=== PATIENT | male | born 1935 | race Caucasian/White ===

== ENCOUNTER 2024-05-02 11:14 | Inpatient (IN) | payer MEDICARE, OTHER, SELFPAY ==
[2024-05-02] VITALS (11 sets, daily range): BP systolic 101–136; BP diastolic 49–67; BMI 28.4
--- NOTE | 2024-05-02 07:10 | ED.GENMED ---
History of Present Illness
General
Chief Complaint: Cold/Flu/URI Symptoms
Source: patient and ambulance crew
Exam Limitations: dementia
Time Seen by Provider: 05/02/24 07:01
Nursing documentation reviewed up to this point in time: agreed with
Travel History
Have you had any contact with someone who has COVID-19?: No
Do you have any symptoms of coronavirus? Fever > 100 degrees, chills, cough, shortness of breath, sore throat, loss of taste or smell, muscle aches, or headache?: No
History of Present Illness
History of Present Illness:
88-year-old male presents emergency ferment due to shortness of breath, cold-like symptoms and fever since early this morning. He has dementia and is a poor historian.
Past History
Past History
ED Past Medical History: HTN, Hypercholesterolemia, Hypothyroidism and Other (Dementia)
ED Past Surgical History: Tonsilectomy and Urological (Hydrocele)
Social History
Tobacco: Non-smoker
Alcohol: None
Drug: None
Living: assisted
Review of Systems
Review of Systems
Allergies reviewed?: Yes
All Other Systems: Not applicable
Constitutional: Reports fever
Respiratory: Reports cough and trouble breathing
Phy Exam
Physical Exam
Physical Exam:
Physical Exam
General: Fever 103
Neck: supple. no meningeal signs. normal posterior pharynx
Heart: s1/s2 regular rate and rhythm, no murmur. equal radial
pulses.
HEENT: Pupils equal round reactive to light, EOMI
Lungs: no acute respiratory distress. Decreased breath sounds at bases bilaterally, cough
Abdomen: normal bowel sounds. not tender. no CVAT
Neuro: alert, responding to person. no focal neurological deficits cranial nerves II through XII intact
Skin: no rash
Psychiatric: well kept. interactive and cooperative
Extremities: no edema. no calf tenderness. negative homans. good distal pulses
Course
Orders/Labs/Results
Orders:
Orders
05/02/24 07:08
Cardiac Monitoring- Treatment ONCE
IV Insert/Care/Rem.- Treatment PRN
Pulse Ox/cont/shift [RESP] Stat
Quantity: 1
05/02/24 07:09
Electrocardiogram (*1) Stat
Reason for Study: Other
Other Reason for Exam: pneumonia
EKG- Treatment ONCE
CR Chest Portable - 1 View Urgent
Comment:
Reason For Exam: short of breath
Reason Study Needs to be Portable: Unable to Transport
05/02/24 07:24
COVID-19 Antigen Urgent
Source: Nasal Swab
05/02/24 07:25
Complete Blood Count/With Diff Urgent
Comprehensive Metabolic Panel Urgent
NT-proBNP Urgent
Troponin I Urgent
Blood Culture Q30M
ELMIRA Source: Blood/Venous
Specimen Description:
Influenza A+B Rapid Molecular Urgent
ELMIRA Source: Nasal Swab
Specimen Description:
05/02/24 07:36
Lactic Acid Q4H
Comment: CANCEL 2nd LACTIC ACID IF 1st LACTIC ACID IS LESS THAN 2
05/02/24 07:51
Blood Culture Q30M
ELMIRA Source: Blood/Venous
Specimen Description:
05/02/24 08:22
Acetaminophen [Tylenol] 650 mg PO NOW STA
Cefepime HCl [Maxipime] 2,000 mg IV NOW STA
05/02/24 08:28
Vancomycin [Vancocin] 2,000 mg 0.9% Sodium Chloride 500 ml [Nss] 500 ml IV NOW
05/02/24 10:39
0.9% Sodium Chloride 500 ml [Nss] 500 ml IV BOLUS
05/02/24 10:49
Admit/Transfer Patient As Directed
Co-Sign Provider:
Level of Care: Inpatient admission
Assign to:: Telemetry
Physician / Group: Carlton/hospitalist
Diagnosis: CAP
Reason for Telemetry: Arrhythmia
Date to Stop Telemetry: 05/05/24
Time to Stop Telemetry: 11:00
Reason for Hospitalization: CAP
Expected length of stay greater than two midnights?: Yes
ELOS- Estimated Length of Stay in days: 3
I certify the patient meets the requirements for IP care: Yes
05/02/24 10:50
Code Status As Directed
Resuscitation Status: Do not resuscitate
Reached after discussion with pt or family/Healthcare POA: Yes
Decision communicated with: KENZIE at bedside
DNR Bracelet Application ONCE
05/02/24 12:23
0.9% Sodium Chloride 500 ml [Nss] 500 ml IV 60 mls/hr
Magnesium Hydroxide [Milk of Magnesia] 30 ml PO Q96H PRN
VANCOMYCIN Pharmacy to Dose [VANCOCIN Pharmacy to Dose] 1 each Pharmacy To Prepare [Call Pharmacy To Prepare] 0 ml IV PER PROTOCOL
05/02/24 12:23
Echo 2D MMode Color/Doppler Routine
Reason for Study: BL LE swelling
Respiratory Culture/Gram Stain Routine
ELMIRA Source: Sputum
Specimen Description:
Activity As Directed
Activity Level: Out of Bed-Early Mobility
Intake/ Output As Directed
Frequency: Per unit guidelines
Vital Signs As Directed
Frequency: Per unit guidelines
Weight As Directed
Frequency: Once
Comment: on admission
Pt Eval And Treat Routine
Activity Level: As Tolerated
Speech Therapy Eval & Treat Routine
DX Deep Vein Thrombosis Video Routine
05/02/24 12:41
Acetaminophen [Tylenol] 650 mg PO Q4HPRN PRN
05/02/24 13:02
Vancomycin MRSA PCR Screen Routine
ELMIRA Source: N
Specimen Description:
Comment: Changed per pharmacy protocol/Add on request by Merna Jaimes
05/02/24 14:00
Troponin I Q8H
Azithromycin 500 mg/250 ml [Zithromax Infusion] 500 mg in 250 ml IV Q24H
05/02/24 Dinner
NPO
Allow oral meds: Yes
Allow clear liquids: Sips of Clears
05/02/24 16:00
Heparin 5,000 units SC Q8
05/02/24 22:00
Troponin I Q8H
Cefepime HCl [Maxipime] 1,000 mg IV Q12H
05/03/24 06:00
Basic Metabolic Panel IN AM
Complete Blood Count/With Diff IN AM
Troponin I Q8H
Levothyroxine [Synthroid] 125 mcg PO DAILY@0600
05/03/24 08:00
Atenolol [Tenormin] 25 mg PO DAILY
Finasteride [Proscar] 5 mg PO DAILY
05/04/24 06:00
Basic Metabolic Panel IN AM
Complete Blood Count/With Diff IN AM
05/05/24 06:00
Basic Metabolic Panel IN AM
Complete Blood Count/With Diff IN AM
05/05/24 11:00
DC Protocol for Telemetry ONCE
05/06/24 06:00
Basic Metabolic Panel IN AM
Complete Blood Count/With Diff IN AM
05/07/24 06:00
Basic Metabolic Panel IN AM
Complete Blood Count/With Diff IN AM
Abnormal Lab Results
05/02/24
07:25
RBC 4.00 L 10^6/uL
(4.70-6.10)
Hgb 12.8 L g/dL
(13.0-18.0)
Hct 37.8 L %
(39.0-52.0)
MCV 94.5 H fL
(80.0-94.0)
MCH 32.0 H pg
(27.0-31.0)
MPV 10.6 H fL
(7.4-10.4)
Absolute Neuts (auto) 7.5 H 10^3/uL
(1.4-6.5)
Absolute Lymphs (auto) 0.7 L 10^3/uL
(1.2-3.4)
Absolute Monos (auto) 0.9 H 10^3/uL
(0.1-0.6)
Neutrophils % 81.7 H %
(42.2-75.2)
Lymphocytes % 7.4 L %
(20.5-51.1)
Monocytes % 10.2 H %
(1.7-9.3)
BUN 32 H mg/dl
(9-20)
Creatinine 1.9 H mg/dL
(0.7-1.3)
Glucose 136 H mg/dl
(70-99)
Troponin I 0.045 H* ng/ml
Total Protein 6.1 L g/dl
(6.3-8.2)
Albumin 3.3 L g/dl
(3.5-5.0)
05/02/24 07:25
05/02/24 07:25
Vital Signs
Initial and Last Documented VS:
Initial Vital Signs
Temp
103 F H
05/02/24 06:58
Last Documented Vital Signs
Temp Pulse Resp BP Pulse Ox
98.0 F 63 18 136/64 96
05/02/24 12:53 05/02/24 12:53 05/02/24 12:53 05/02/24 12:53 05/02/24 12:53
MDM/Problems Addressed
Differential Diagnosis Includes:
Pneumonia, influenza, COVID
MDM/Problems Addressed:
88-year-old male with pneumonia, hypoxia, fever. IV cefepime and vancomycin given.
Chronic conditions affecting care: HTN
Acute Exacerbation and/or Progression of Chronic Illness: HTN
*Radiology
Radiology exam reviewed: radiology read reviewed (Chest x-ray shows possible pneumonia)
*Pulse Oximetry
Patient hypoxic: yes
*EKG
Interpreted by ED Provider?: Yes
EKG Intrepretation Date: 05/02/24
EKG Intrepretation Time: 07:26
Interpretation: normal
Comparison EKG: no comparison EKG present
Heart Rate: 69
Rate: normal
Rhythm: sinus
[place]: normal axis
Interval: normal interval
QRS Pattern: normal QRS
Ischemia: no ischemia
*Title Camera Operator Interpretation
Rate: normal
Interpretation: normal
Heart Rate: 70
Rhythm: sinus
*Critical Care Note
Total Time (30-74mins, 75-104mins- exclusive of procedures): Not Applicable
Patient Management
Social determinants of health affecting care: Living situation
Discussion with other providers: Hospitalist
Escalation/DeEscalation of care consider admission/obs:
admit indicated
ED Attending Note
-
Portions of this chart may have been created with voice recognition software.� Occasional wrong word or��sound alike� substitutions may have occurred due to the inherent limitations of voice recognition software.
Discharge Plan
Departure
Patient Disposition: Admit
Date of Disposition: 05/02/24
Time of Disposition: 08:25
Admit to: Telemetry
Presentation/result/management discussed w/ accepting MD/DO: Hospitalist
Patient with high blood pressure during this ER visit?: No
Condition: Fair
Discharge Problem:
Pneumonia
Interventions
Interventions:
*Risk Screen - Suicide Last Done: 05/02/24 12:22
*General Assessment Last Done: 05/02/24 08:00
*Neglect/Abuse Screening Last Done: 05/02/24 07:43
ED- Fall Risk Assessment Last Done: 05/02/24 07:43
*ED COVID-19 Vaccine History Last Done: 05/02/24 07:43
*Nursing Disposition Last Done: 05/02/24 12:22
ED- Pulmonary Assessment Last Done: 05/02/24 07:43
Discharge Date and Time
Discharge Date/Time: 05/02/24 12:24
[2024-05-02 07:49] LABS: % Basophils 0.2 % (0-2); % Eosinophils 0.1 % (0-6); % Immature Granulocytes 0.4 % (0-0.5); % Lymphocytes 7.4 % (20.5-51.1); % Monocytes 10.2 % (1.7-9.3); % Neutrophils 81.7 % (42.2-75.2); Absolute Lymphocytes 0.7 10^3/uL (1.2-3.4); Absolute Monocytes 0.9 10^3/uL (0.1-0.6); Absolute Neutrophils 7.5 10^3/uL (1.4-6.5); Hematocrit 37.8 % (39.0-52.0); Hemoglobin 12.8 g/dL (13.0-18.0); Mean Corp Hgb Conc. 33.9 g/dL (33.0-37.0); Mean Corpuscular Volume 94.5 fL (80.0-94.0); Mean Platelet Volume 10.6 fL (7.4-10.4); Nucleated Red Blood Cells % 0 % (-); Platelet Count 172 10^3/uL (130-400); Red Cell Dist. Width 12.9 % (11.5-14.5); White Blood Cell Count 9.2 10^3/uL (4.8-10.8)
[2024-05-02 08:02] LABS: ALT (SGPT) 24 U/L (0-50); AST (SGOT) 32 U/L (17-59); Albumin 3.3 g/dl (3.5-5.0); Alkaline Phosphatase 53 U/L (38-126); Blood Urea Nitrogen 32 mg/dl (9-20); Calcium 9.4 mg/dl (8.4-10.2); Carbon Dioxide 25 mmol/L (22-30); Chloride 107 mmol/L (98-107); Glucose 136 mg/dl (70-99); Potassium 4.4 mmol/L (3.5-5.1); Sodium 140 mmol/L (135-145); Total Bilirubin 1.2 mg/dl (0.2-1.3); Total Protein 6.1 g/dl (6.3-8.2); eGFR 33.51
[2024-05-02 08:03] LABS: Lactic Acid 1.5 mmol/L (0.7-2.0)
[2024-05-02 08:22] LABS: COVID-19 Antigen Negative (Negative)
[2024-05-02 08:23] LABS: NT-proBNP 1760 pg/ml; Troponin I 0.045 ng/ml
[2024-05-02] MEDS: MAXIPIME 2000 MG IV (08:48)
[2024-05-02] MEDS: TYLENOL 650 MG PO (08:49)
[2024-05-02] MEDS: VANCOCIN 540 MG IV (08:53)
--- NOTE | 2024-05-02 10:33 | HPS.HSE ---
Family Physician
-
Family Physician: Donn Canas, DO
Chief Complaint
-
SOB, fever
History of Present Illness
HPI: 88-year-old male PMH dementia, hypertension, hyperlipidemia, BPH, hypothyroidism, CAD, right ear deafness, CKD; p/w shortness of breath and fever that started in the morning of admission.
He is a poor historian due to dementia.
He is arousable but not orientated; this is his baseline mental status per KENZIE at bedside.
Medical History
Past Medical History
Past Medical History: Reports Other (HTN, HLD, BPH, dementia, hypothyroidism, CAD/SD 23 years ago, deaf right ear)
Past Surgical History: Reports Other (TURP)
Social History
Tobacco: Non-smoker
Alcohol: None
Personal:
Family History
Family History: Unable to Obtain (Due to dementia)
Allergies / Home Medications
Allergies reflects when Allergies were last updated in real trends.
Home Medications with original date entered in real trends
Allergy/Medication List:
Allergies
Allergy/AdvReac Type Severity Reaction Status Date / Time
No Known Allergies Allergy Verified 05/02/24 06:59
Home Medications
atenolol 25 mg tablet 25 mg PO DAILY Blood pressure #30 tabs 12/02/23
cholecalciferol (vitamin D3) 25 mcg (1,000 unit) tablet 1,000 unit PO HS Supplement #30 tabs 12/02/23
finasteride 5 mg tablet 5 mg PO DAILY Urinary issue #30 tabs 12/02/23
acetaminophen 325 mg capsule 650 mg PO Q4HPRN PRN fever or mild pain 05/02/24
levothyroxine 125 mcg tablet 125 mcg PO DAILY Thyroid 05/02/24
magnesium hydroxide 400 mg/5 mL oral suspension (Milk of Magnesia) 30 ml PO Q96H PRN day 4 no bm 05/02/24
Review of Systems
-
Respiratory: Reports See HPI
Physical Exam
Vital Signs
Vital Signs
Temp Pulse Resp BP Pulse Ox
39.4 C H 63 24 120/60 92
05/02/24 06:58 05/02/24 09:45 05/02/24 09:45 05/02/24 09:00 05/02/24 09:45
Physical Exam
General: Well Developed, Well Nourished, Comfortable, Respiratory Distress (mild) and Appears Chronically Ill
HEENT: NormoCephalic, Moist mucous membranes, Atraumatic and Oxygen (2L NC)
Respiratory: Clear and Non Labored Respirations; No Accessory Resp Muscle Use
Cardiac: S1/S2 and Regular Rhythm; No Murmur or Rub
GI: Soft, Non Tender, Non Distended and Normal Bowel Sounds; No Organomegaly
Rectal: Deferred by Provider
Musculoskeletal: No Clubbing, No Cyanosis and No Edema
Skin: No Rash
Neuro: Awake; No Oriented
Psych: Calm and Apparent Dementia
Laboratory Results
-
05/02/24 07:25
05/02/24 07:25
Laboratory Results
Lactic Acid 1.5 mmol/L (0.7-2.0) 05/02/24 07:36
Total Bilirubin 1.2 mg/dl (0.2-1.3) 05/02/24 07:25
AST 32 U/L (17-59) 05/02/24 07:25
ALT 24 U/L (0-50) 05/02/24 07:25
Alkaline Phosphatase 53 U/L (38-126) 05/02/24 07:25
Troponin I 0.045 ng/ml H* 05/02/24 07:25
Data Reviewed
-
Diagnostic Radiology: Image Personally Visualized and interpreted and Report Reviewed by me
Lab Data: Labs Reviewed by me
Impression/Plan
-
HPI: 88-year-old male PMH dementia, hypertension, hyperlipidemia, BPH, hypothyroidism, CAD, right ear deafness, CKD; p/w shortness of breath and fever that started in the morning of admission.
He is a poor historian due to dementia.
He is arousable but not orientated; this is his baseline mental status per KENZIE at bedside.
CXR:
mild increased stranding in the left lung base, with obscuration of the left hemidiaphragm. Minimal blunting of the left costophrenic angle.
A/P:
# Sepsis POA due to CAP
# Acute hypoxic respiratory insufficiency
Pt placed on 2L NC, cont O2 and wean as tolerated, he is not on home O2
CXR noted left lung stranding
COVID/Flu neg
Follow blood Cx, check MRSA screen
cont cefepime/Vanc , add azithromycin
# STACEY on CKD3a
Scr 1.9 from baseline creatinine 1.4.
gentle IVF 500 cc only due to pedal edema
# Non-ischemic myocardial injury
troponin 0.045, cont to trend
# pedal edema
check Echo
consider diuretic
# Hypothyroidism
cont Levoxyl
# Chronic cognitive impairment
arousable but not orientated
SPL eval prior to starting diet
# Essential HTN
Cont [employer] atenolol with holding parameter
# HLD
# CAD
# BPH
# h/o TURP
cont Flomax
DNR
DVT ppx: heparin SQ
[2024-05-02] MEDS: NSS 500 IV ×2 (11:03→16:03)
--- NOTE | 2024-05-02 12:49 | PHA.VAN.IN ---
Assessment
- Assessment
Renal Function: Appears elevated from baseline (SCR 1.9 vs ~1.4)
Concomitant Antimicrobials: cefepime, azithromycin
Plan
- Plan
Initial / Loading Dose: 2000mg - 05/02 08:53
Maintenance Regimen: dosing by level
Monitoring: random 05/03 0600
MRSA Screen: Ordered per protocol
Pharmacokinetics Vancomycin I
- -
Patient Age: 88
Patient Sex: Male
Vancomycin Day #: 1
Indication: Pulmonary/Respiratory
Requesting Provider: Dr. Vincent
Pertinent Antimicrobial Allergies:
NKDA
Height / Weight:
Height 5 ft 10 in
Actual Weight 91.3 kg
Pertinent Past Medical History: CKD (baseline SCR ~1.4)
- Vital Signs / Lab Results
Temp Pulse Resp BP Pulse Ox
97.5 F 64 22 112/56 96
05/02/24 12:21 05/02/24 12:15 05/02/24 12:15 05/02/24 12:00 05/02/24 11:45
Lab Results - Hematology
05/02/24
07:25
WBC 9.2
Lab Results - Chemistry
05/02/24
07:25
BUN 32 H
Creatinine 1.9 H
Albumin 3.3 L
05/02/24 05/02/24
07:36 11:15
Lactic Acid 1.5 Cancelled
Microbiology Results
05/02/24 07:25 Influenza Types A & B (CARLOS) - Final
Nasal Swab Negative for Influenza A & B, NAAT
Negative results must be combined with clinical observations
and patient history.
Nucleic Acid Amplification test (NAAT)performed on the
[employer] platform.
--- NOTE | 2024-05-02 13:20 | PTOTSP ---
Dysphagia Evaluation
Patient presents with signs concerning for oral/pharyngeal dysphagia without signs of aspiration but silent aspiration cannot be ruled out at the bedside. Patient had episodes concerning for significantly delayed to absent swallows, with swallow
eventually initiated with an additional bolus.
Patient is at acute on chronic risk for dysphagia given his dementia and current acute illness with PNA. If family opting for a PO diet understanding risks/complications of aspiration given patient's history of dementia, consider IDDSI Level 4
Puree, IDDSI Level 0 Thin Liquids with full supervision, assistance, and alternating bites with sips of liquid.
Alternative option includes NPO given given concern for episodic significantly delayed to absent swallows. Per physician, continue the latter given acute confusion.
Recommend:
1. On-going goals of care discussions regarding nutrition/hydration in patient with dementia and current PNA
2. Will re-evaluate swallowing as able/appropriate. Consider objective assessment of swallowing via video swallow to rule out silent aspiration.
3. Medications - non-oral
4. Oral care 3x daily
--- NOTE | 2024-05-02 13:38 | PTOTSP ---
Dysphagia Evaluation
Patient with signs concerning for oral/pharyngeal dysphagia without signs of aspiration but silent aspiration cannot be ruled out at the bedside. Episodes concerning for significantly delayed to absent swallows noted, with swallow eventually
initiated with an additional bolus.
Patient is at acute on chronic risk for dysphagia given his dementia and current acute illness with PNA. If family opting for a PO diet understanding risks/complications of aspiration given patient's history of dementia, consider IDDSI Level 4
Puree, IDDSI Level 0 Thin Liquids with full supervision, assistance, and alternating bites with sips of liquid.
Alternative option includes NPO given concern for episodic significantly delayed to absent swallows. Per physician, continue NPO given acute confusion.
Recommend:
1. On-going goals of care discussions regarding nutrition/hydration in patient with dementia and current PNA
2. Will re-evaluate swallowing as able/appropriate. Consider objective assessment of swallowing via video swallow to rule out silent aspiration.
3. Medications - non-oral
4. Oral care 3x daily
--- NOTE | 2024-05-02 14:00 | PTCARENOTE ---
Patient received from ED in stretcher, pulled over, 2LNC, in NAD, drowsy. MRSA screen collected, patient positive, transferred to 2N after returning from ECHO. Receiving RN given report, no questions indicated.
[2024-05-02 15:58] LABS: Troponin I 0.029 ng/ml
[2024-05-02] MEDS: ZITHROMAX INFUSION 250 IV (16:04)
[2024-05-02] MEDS: HEPARIN 5000 UNITS SC ×2 (16:05→23:13)
[2024-05-02] MEDS: MAXIPIME 1000 MG IV (22:08)
[2024-05-02] MEDS: STERILE WATER FOR INJECTION 10 ML IV (22:09)
[2024-05-02 22:31] LABS: Troponin I 0.026 ng/ml
[2024-05-03] VITALS (7 sets, daily range): BP systolic 124–154; BP diastolic 57–78; PULSE 72; O2SAT 95
[2024-05-03] MEDS: SYNTHROID PO (05:56)
[2024-05-03 07:40] LABS: % Basophils 0.3 % (0-2); % Eosinophils 0.6 % (0-6); % Immature Granulocytes 0.4 % (0-0.5); % Lymphocytes 15.1 % (20.5-51.1); % Monocytes 9.7 % (1.7-9.3); % Neutrophils 73.9 % (42.2-75.2); Absolute Lymphocytes 1.1 10^3/uL (1.2-3.4); Absolute Monocytes 0.7 10^3/uL (0.1-0.6); Absolute Neutrophils 5.2 10^3/uL (1.4-6.5); Hematocrit 36.4 % (39.0-52.0); Hemoglobin 12.2 g/dL (13.0-18.0); Mean Corp Hgb Conc. 33.5 g/dL (33.0-37.0); Mean Corpuscular Hgb 31.4 pg (27.0-31.0); Mean Corpuscular Volume 93.6 fL (80.0-94.0); Mean Platelet Volume 11.5 fL (7.4-10.4); Nucleated Red Blood Cells % 0 % (-); Platelet Count 166 10^3/uL (130-400); Red Blood Cell Count 3.89 10^6/uL (4.70-6.10); Red Cell Dist. Width 13.1 % (11.5-14.5)
[2024-05-03] MEDS: HEPARIN 5000 UNITS SC ×3 (07:57→23:03)
[2024-05-03] MEDS: TENORMIN PO (07:58)
[2024-05-03] MEDS: PROSCAR PO (07:58)
[2024-05-03 08:02] LABS: Troponin I 0.023 ng/ml
[2024-05-03 08:11] LABS: Blood Urea Nitrogen 38 mg/dl (9-20); Carbon Dioxide 25 mmol/L (22-30); Chloride 109 mmol/L (98-107); Estimated Creatinine Clearance 35 ml/min; Glucose 95 mg/dl (70-99); Potassium 4.5 mmol/L (3.5-5.1); Sodium 143 mmol/L (135-145); Vancomycin Random 11.3 ug/ml
--- NOTE | 2024-05-03 09:22 | PHA.VAN.FU ---
Vancomycin Assessment / Plan
- Assessment
Renal Function: SCR Decreasing
WBC's are: WNL
In the past 24 hrs, patient has been: Afebrile
Concomitant Antimicrobials: cefepime, azithromycin
- Assessment - Therapeutic Drug Monitoring
Random Level: 11.3 - drawn ~21H after 2g loading dose
- Dosing Plan
Dosing by Level: Re-dose today (Vanc 1000mg)
- Monitoring Plan
Random Level: 05/04 0600
- Follow Up
Pharmacy will continue to follow.
Vancomycin Follow UP
- -
Patient Age: 88
Patient Sex: Male
Vancomycin Day #: 2
Indication: Pulmonary/Respiratory
Requesting Provider: Dr. Vincent
Pertinent Antimicrobial Allergies:
NKDA
Height / Weight:
Height 5 ft 10 in
Actual Weight 89.925 kg
Pertinent Past Medical History: CKD (baseline SCR ~1.4)
- Vital Signs / Lab Results
Temp Pulse Resp BP Pulse Ox
97.5 F 58 14 124/57 95
05/03/24 07:25 05/03/24 07:25 05/03/24 07:25 05/03/24 07:25 05/03/24 07:25
Lab Results - Hematology
05/02/24 05/03/24
07:25 06:02
WBC 9.2 7.0
Lab Results - Chemistry
05/02/24 05/03/24
07:25 06:02
BUN 32 H 38 H
Creatinine 1.9 H 1.5 H
Estimated Creat Clear 35
Albumin 3.3 L
05/02/24 05/02/24
07:36 11:15
Lactic Acid 1.5 Cancelled
Microbiology Results
05/02/24 07:51 Blood Culture - Preliminary
Blood/Venous No Growth in 24 hours- Final report to follow
05/02/24 07:25 Blood Culture - Preliminary
Blood/Venous No Growth in 24 hours- Final report to follow
05/02/24 13:02 Nasal Screen MRSA (PCR) - Final
Nose Staph aureus MRSA
05/02/24 07:25 Influenza Types A & B (CARLOS) - Final
Nasal Swab Negative for Influenza A & B, NAAT
Negative results must be combined with clinical observations
and patient history.
Nucleic Acid Amplification test (NAAT)performed on the
[employer] platform.
Therapeutic Drug Monitoring
Random Vancomycin 11.3 ug/ml 05/03/24 06:02
[2024-05-03] MEDS: MAXIPIME 1000 MG IV ×2 (10:10→22:23)
[2024-05-03] MEDS: STERILE WATER FOR INJECTION 10 ML IV ×2 (10:11→22:23)
--- NOTE | 2024-05-03 10:18 | PTOTSP ---
Dysphagia Therapy
Patient alertness improved and is appropriate to initiate an oral diet as outlined below. Consider video swallow study to r/o silent aspiration given admission with PNA, history of dementia, and unknown baseline.
Recommend:
1. Regular, Thin Liquids
2. Medications in puree
3. Strategies: full supervision, assist as needed, upright to 90 degrees, small single sips/bites, slow rate
4. Oral care 3x daily
5. Consider video swallow study
--- NOTE | 2024-05-03 11:23 | W.PN.HOSP.TC ---
Today's Communication/Plan
-
see A/P
Assessment / Plan
Assessment / Plan
HPI: 88-year-old male PMH dementia, hypertension, hyperlipidemia, BPH, hypothyroidism, CAD, right ear deafness, CKD; p/w shortness of breath and fever that started in the morning of admission.
He is a poor historian due to dementia.
He is arousable but not orientated; this is his baseline mental status per KENZIE at bedside.
CXR:
mild increased stranding in the left lung base, with obscuration of the left hemidiaphragm. Minimal blunting of the left costophrenic angle.
A/P:
# Sepsis POA due to CAP vs aspiration pneumonia
# Acute hypoxic respiratory insufficiency
Pt placed on 2L NC, cont O2 and wean as tolerated, he is not on home O2
CXR noted left lung stranding
COVID/Flu neg, blood Cx negative
MRSA screen positive
cont cefepime, Vanc, azithromycin, add Flagyl for anaerobic coverage for possible aspiration
# Dysphagia
# Dementia
Pt is awake but not orientated
check VSE
SPL following for swallowing eval
# STACEY on CKD3a
Scr 1.9 -> 1.5 after 500 cc IVF; baseline creatinine 1.4.
# Non-ischemic myocardial injury
# Chronic LE edema
check Echo
consider diuretic , daughter states that pt has never been on diuretic
Cont [employer] MAGISTRATE Compression stocking (daughter to bring in)
# Hypothyroidism
cont Levoxyl
# Essential HTN
Cont [employer] MAGISTRATE atenolol with holding parameter
# HLD
# CAD
# BPH
# h/o TURP
cont Flomax
DNR
DVT ppx: heparin SQ
DW daughter at bedside
Anticipated Discharge: > 48 hours
Subjective/Interval History
-
Date of Service: May 03, 2024
Objective Data
-
Labs:
Laboratory Results
05/03/24
06:02
WBC 7.0
Hgb 12.2 L
Hct 36.4 L
Plt Count 166
Sodium 143
Potassium 4.5
Chloride 109 H
Carbon Dioxide 25
BUN 38 H
Creatinine 1.5 H
Glucose 95
Calcium 9.0
Vital Signs:
Vital Signs
Temp Pulse Resp BP Pulse Ox
36.4 C 58 14 124/57 95
05/03/24 07:25 05/03/24 07:25 05/03/24 07:25 05/03/24 07:25 05/03/24 07:25
I&O
05/02/24 05/03/24 05/04/24
06:59 06:59 06:59
Intake Total 1540 / 1790 250 / 250
Balance 1540 / 1790 250 / 250
Review of Systems
-
Unable to obtain full review of systems at this time due to: Dementia
Respiratory: Reports Cough
Physical Exam
-
General: Well Developed, Well Nourished, Comfortable and Respiratory Distress (mild)
HEENT: Normocephalic, Atraumatic, Hearing Impaired and Oxygen (2L NC)
Respiratory: Clear to Auscultation, Non Labored Respirations and Other (harsh breath sound); Negative Accessory Resp Muscle Use
Cardiac: Regular Rhythm and S1/S2; Negative Murmur
GI: Soft, Nontender and Normal Bowel Sounds
Musculoskeletal: Edema, Right Lower Extrem and Edema, Left Lower Extrem
Neuro: Awake
Psych: Calm and Apparent Dementia
Data Reviewed
-
Diagnostic Radiology: Image personally visualized and interpreted and Report Reviewed by me
Labs: Labs Reviewed by me
--- NOTE | 2024-05-03 13:15 | PTOTSP ---
Video Swallow Study
Summary: Patient presents with mild oral/pharyngeal dysphagia and suspected esophageal dysphagia (i.e., retention in esophagus after solids reduced with thin liquid barium wash, but retrograde flow of those liquids below pharyngoesophageal
segment). No top down or bottom up aspiration occurred.
Recommend:
1. Regular, Thin
2. Medications in puree
3. Strategies: full supervision, assist as needed, upright to 90 degrees, small single sips/bites, slow rate, alternate sips/bites (to assist with pharyngoesophageal clearance), upright for 30 minutes after PO intake as a reflux precaution
4. Oral care 3x daily
5. No further dysphagia therapy with an PHYSICAL MEDICINE SPECIALIST warranted. Please reconsult as needed.
6. Consider GI consult to assess esophageal stage of swallowing pending patient/family GOC.
[2024-05-03] MEDS: VANCOCIN 200 IV (13:30)
[2024-05-03] MEDS: FLAGYL 500 MG 100 IV ×2 (14:40→22:23)
[2024-05-03] MEDS: ZITHROMAX INFUSION 250 IV (15:49)
--- NOTE | 2024-05-03 17:02 | CM ---
Patient is a resident of [facility]. Hx dementia. Poor historian. Assist of 2 to transfer. Called and spoke with who did not recall how long patient has been at [facility]. IMM reviewed with . Discharge Plan of Care: Return
to [facility].
[2024-05-04 03:19] VITALS: BP 159/91
[2024-05-04] MEDS: SYNTHROID 125 MCG PO (05:16)
[2024-05-04] MEDS: FLAGYL 500 MG 100 IV ×3 (05:16→21:57)
--- NOTE | 2024-05-04 07:38 | PN.CDI ---
CDI
- -
CDI:
Physician Documentation Request
Admit Date: 05/02/24 11:14
Dear Doctor Carlton
Please review the following and provide your response in the progress notes.
Clinical Indicators:
EMS, 05/02
#'...87% on RA...'
#'...placed on 4L via NC to which he increased to 90%.'
#'During transport to ED....oxygen increased from 4L to 6L ...pulse ox improved to 96%
H+P, 05/02
#General: Well Developed, Well Nourished, Comfortable, Respiratory Distress (mild) and Appears Chronically Ill
# Sepsis POA due to CAP
# Acute hypoxic respiratory insufficiency
#Pt placed on 2L NC, cont O2 and wean as tolerated, he is not on home O2
Please clarify which of the following accurately represents the patient's respiratory status:
Acute respiratory failure, POA, resolved
Acute hypoxic respiratory insufficiency
Other(please specify)
Additional information for Respiratory Failure:
Recognized criteria for Respiratory Failure (Source: [facility] Sep 2013)
Symptoms Please indicate type if known
1. Tachypnea, SOB, dyspnea Hypoxic
2. Use of accessory muscles Hypercapnic
3. Pallor or cyanosis Hypoxic and Hypercapnic
4. Anxiety or restlessness
5. Unable to speak in full sentences
Supplemental O2 of > 40% (5LPM) Intubation is not required
Use of terms such as suspected, likely, concern for, or probable (associated with a specific diagnosis that is being evaluated, monitored, or treated as if it exists) are acceptable and can be coded in the inpatient setting, when documented at the
time of discharge.
Thank you,
Elyssa Aguilera RN BSN CCDS
CDI Specialist
please contact via tiger text
Please use your independent medical judgment in providing your response.
[2024-05-04 07:48] LABS: % Basophils 0.4 % (0-2); % Eosinophils 2.1 % (0-6); % Immature Granulocytes 0.5 % (0-0.5); % Lymphocytes 17.9 % (20.5-51.1); % Monocytes 10.9 % (1.7-9.3); % Neutrophils 68.2 % (42.2-75.2); Absolute Eosinophils 0.1 10^3/uL (0-0.7); Absolute Monocytes 0.6 10^3/uL (0.1-0.6); Absolute Neutrophils 3.9 10^3/uL (1.4-6.5); Hematocrit 34.1 % (39.0-52.0); Hemoglobin 11.5 g/dL (13.0-18.0); Mean Corp Hgb Conc. 33.7 g/dL (33.0-37.0); Mean Corpuscular Hgb 31.4 pg (27.0-31.0); Mean Corpuscular Volume 93.2 fL (80.0-94.0); Nucleated Red Blood Cells % 0 % (-); Platelet Count 179 10^3/uL (130-400); Red Blood Cell Count 3.66 10^6/uL (4.70-6.10); Red Cell Dist. Width 12.8 % (11.5-14.5); White Blood Cell Count 5.7 10^3/uL (4.8-10.8)
[2024-05-04 08:10] LABS: Vancomycin Random 11.9 ug/ml
[2024-05-04 08:28] LABS: Blood Urea Nitrogen 35 mg/dl (9-20); Carbon Dioxide 24 mmol/L (22-30); Chloride 108 mmol/L (98-107); Estimated Creatinine Clearance 38 ml/min; Glucose 100 mg/dl (70-99); Sodium 139 mmol/L (135-145); eGFR 48.34
--- NOTE | 2024-05-04 09:44 | PHA.VAN.FU ---
Vancomycin Assessment / Plan
- Assessment
Renal Function: Stable
WBC's are: WNL
In the past 24 hrs, patient has been: Afebrile
Concomitant Antimicrobials: cefepime, azithromycin, metronidazole
- Assessment - Therapeutic Drug Monitoring
Random Level: 11.9 - drawn ~17.5H after previous dose of 1000mg
- Dosing Plan
Adjust Regimen to: Vanc 1000mg Q24H - first dose now then 0600
New Regimen Predicts: AUC (450), Peak (27.5), Trough (12)
- Monitoring Plan
No level(s) ordered at this time: consider levels in next few days
- Follow Up
Pharmacy will continue to follow.
Vancomycin Follow UP
- -
Patient Age: 88
Patient Sex: Male
Vancomycin Day #: 3
Indication: Pulmonary/Respiratory
Requesting Provider: Dr. Vincent
Pertinent Antimicrobial Allergies:
NKDA
Height / Weight:
Height 5 ft 10 in
Actual Weight 89.925 kg
Pertinent Past Medical History: CKD (baseline SCR ~1.4)
- Vital Signs / Lab Results
Temp Pulse Resp BP Pulse Ox
98.6 F 64 16 159/91 95
05/04/24 07:15 05/04/24 07:15 05/04/24 07:15 05/04/24 03:19 05/04/24 07:15
Lab Results - Hematology
05/02/24 05/03/24 05/04/24
07:25 06:02 07:01
WBC 9.2 7.0 5.7
Lab Results - Chemistry
05/02/24 05/03/24 05/04/24
07:25 06:02 07:00
BUN 32 H 38 H 35 H
Creatinine 1.9 H 1.5 H 1.4 H
Estimated Creat Clear 35 38
Albumin 3.3 L
05/02/24 05/02/24
07:36 11:15
Lactic Acid 1.5 Cancelled
Microbiology Results
05/02/24 07:51 Blood Culture - Preliminary
Blood/Venous No Growth in 48 hours- Final report to follow
05/02/24 07:25 Blood Culture - Preliminary
Blood/Venous No Growth in 48 hours- Final report to follow
05/02/24 13:02 Nasal Screen MRSA (PCR) - Final
Nose Staph aureus MRSA
05/02/24 07:25 Influenza Types A & B (CARLOS) - Final
Nasal Swab Negative for Influenza A & B, NAAT
Negative results must be combined with clinical observations
and patient history.
Nucleic Acid Amplification test (NAAT)performed on the
[employer] platform.
Therapeutic Drug Monitoring
Random Vancomycin 11.9 ug/ml 05/04/24 07:00
[2024-05-04] MEDS: TENORMIN 25 MG PO (09:59)
[2024-05-04] MEDS: HEPARIN 5000 UNITS SC ×3 (09:59→23:08)
[2024-05-04] MEDS: PROSCAR 5 MG PO (09:59)
[2024-05-04] MEDS: MAXIPIME 1000 MG IV ×2 (10:04→21:58)
[2024-05-04] MEDS: STERILE WATER FOR INJECTION 10 ML IV ×2 (10:21→21:58)
[2024-05-04] MEDS: VANCOCIN 200 IV (10:22)
--- NOTE | 2024-05-04 11:35 | W.PN.HOSP.TC ---
Addendum entered and electronically signed by Ashley Vincent MD 05/04/24 14:01:
# Acute respiratory failure POA
Original Note:
Today's Communication/Plan
-
see A/P
Assessment / Plan
Assessment / Plan
HPI: 88-year-old male PMH dementia, hypertension, hyperlipidemia, BPH, hypothyroidism, CAD, right ear deafness, CKD; p/w shortness of breath and fever that started in the morning of admission.
He is a poor historian due to dementia.
He is arousable but not orientated; this is his baseline mental status per KENZIE at bedside.
CXR:
mild increased stranding in the left lung base, with obscuration of the left hemidiaphragm. Minimal blunting of the left costophrenic angle.
A/P:
# Sepsis POA due to CAP
# Acute hypoxic respiratory insufficiency
Pt placed on 2L NC, cont O2 and wean as tolerated, he is not on home O2
CXR noted left lung stranding
COVID/Flu neg, blood Cx negative
MRSA screen positive
cont cefepime, Vanc, azithromycin, and added Flagyl for anaerobic coverage for possible aspiration
# Dementia
# Dysphagia ruled out with VSE
Pt is awake but not orientated
OK for solid and thin liquid per SPL
# STACEY on CKD3a
Scr 1.9 -> 1.4; baseline creatinine at 1.4.
# Non-ischemic myocardial injury
# Chronic LE edema
Echo: Normal biventricular size and systolic function. Stage I diastolic dysfunction. No significant change since the prior study of 10/25/2019.
daughter states that pt has never been on diuretic
will give IV lasix 40 mg x1
monitor SCr
Cont ASSOCIATE MEDIA DIRECTOR Compression stocking (daughter to bring in)
# Hypothyroidism
cont Levoxyl
# Essential HTN
Cont ASSOCIATE MEDIA DIRECTOR atenolol with holding parameter
# HLD
# CAD
# BPH
# h/o TURP
cont Flomax
DNR
DVT ppx: heparin SQ
DW RN
Anticipated Discharge: 24 - 48 hours
Subjective/Interval History
-
Date of Service: May 04, 2024
Objective Data
-
Labs:
Laboratory Results
05/04/24 05/04/24
07:00 07:01
WBC 5.7
Hgb 11.5 L
Hct 34.1 L
Plt Count 179
Sodium 139
Potassium 4.0
Chloride 108 H
Carbon Dioxide 24
BUN 35 H
Creatinine 1.4 H
Glucose 100 H
Calcium 9.0
Vital Signs:
Vital Signs
Temp Pulse Resp BP Pulse Ox
37.0 C 74 16 159/91 95
05/04/24 07:15 05/04/24 09:59 05/04/24 07:15 05/04/24 09:59 05/04/24 07:15
I&O
05/03/24 05/04/24 05/05/24
06:59 06:59 06:59
Intake Total 1540 / 1790 1330 / 1330
Balance 1540 / 1790 1330 / 1330
Review of Systems
-
Unable to obtain full review of systems at this time due to: Dementia
Physical Exam
-
General: Well Developed, Well Nourished, Comfortable and Respiratory Distress (mild)
HEENT: Normocephalic, Atraumatic, Hearing Impaired and Oxygen (2L NC)
Respiratory: Clear to Auscultation, Non Labored Respirations and Other (harsh breath sound); Negative Accessory Resp Muscle Use
Cardiac: Regular Rhythm and S1/S2; Negative Murmur
GI: Soft, Nontender and Normal Bowel Sounds
Musculoskeletal: Edema, Right Lower Extrem and Edema, Left Lower Extrem
Neuro: Awake
Psych: Calm and Apparent Dementia
Data Reviewed
-
Diagnostic Radiology: Image personally visualized and interpreted and Report Reviewed by me
Labs: Labs Reviewed by me
[2024-05-04 11:40] VITALS: BP 169/82
[2024-05-04] MEDS: LASIX 40 MG IV (12:54)
[2024-05-04 13:11] VITALS: BP 131/69; PULSE 61; O2SAT 92
--- NOTE | 2024-05-04 13:35 | CM ---
Addendum entered by Fang Hooker 05/04/24 13:47:

Original Note:
PT recommends SNF for [place] at discharge. I called is daughter, Elyssa Contreras [phone], to discuss this, and Elyssa is agreeable to transfer to [facility].
Referral sent via [facility]. I spoke with Jamia Gomez at [facility] who will prepare for transfer for Tuesday or Tuesday, depending on when he is medically cleared.
Ambulance transport will need to be arranged for discharge to [facility].
Report to Nursing Dining Car Steward; call the assistant front desk manager at [phone] and ask for the Nursing Dining Car Steward.
[2024-05-04] MEDS: ZITHROMAX INFUSION 250 IV (14:17)
[2024-05-04 15:10] VITALS: BP 96/62
[2024-05-04 19:07] VITALS: BP 133/73
[2024-05-04 23:43] VITALS: BP 138/60
[2024-05-05] MEDS: TYLENOL 650 MG PO (03:34)
[2024-05-05 03:46] VITALS: BP 163/76
[2024-05-05] MEDS: FLAGYL 500 MG 100 IV (05:23)
[2024-05-05] MEDS: SYNTHROID 125 MCG PO (05:25)
[2024-05-05] MEDS: VANCOCIN 200 IV (07:05)
[2024-05-05 07:15] VITALS: BP 134/64
[2024-05-05 07:28] LABS: % Basophils 0.3 % (0-2); % Eosinophils 2.3 % (0-6); % Immature Granulocytes 0.9 % (0-0.5); % Lymphocytes 18.8 % (20.5-51.1); % Monocytes 11.9 % (1.7-9.3); % Neutrophils 65.8 % (42.2-75.2); Absolute Eosinophils 0.2 10^3/uL (0-0.7); Absolute Immature Granulocytes 0.1 10^3/uL (0-0.05); Absolute Lymphocytes 1.2 10^3/uL (1.2-3.4); Absolute Monocytes 0.8 10^3/uL (0.1-0.6); Absolute Neutrophils 4.3 10^3/uL (1.4-6.5); Hematocrit 35.6 % (39.0-52.0); Hemoglobin 12.2 g/dL (13.0-18.0); Mean Corp Hgb Conc. 34.3 g/dL (33.0-37.0); Mean Corpuscular Hgb 31.2 pg (27.0-31.0); Mean Platelet Volume 11.2 fL (7.4-10.4); Nucleated Red Blood Cells % 0 % (-); Platelet Count 194 10^3/uL (130-400); Red Blood Cell Count 3.91 10^6/uL (4.70-6.10); Red Cell Dist. Width 12.8 % (11.5-14.5); White Blood Cell Count 6.6 10^3/uL (4.8-10.8)
[2024-05-05 07:59] LABS: Blood Urea Nitrogen 36 mg/dl (9-20); Carbon Dioxide 26 mmol/L (22-30); Chloride 105 mmol/L (98-107); Estimated Creatinine Clearance 35 ml/min; Glucose 107 mg/dl (70-99); Potassium 3.9 mmol/L (3.5-5.1); Sodium 138 mmol/L (135-145)
[2024-05-05] MEDS: PROSCAR 5 MG PO (07:59)
[2024-05-05] MEDS: TENORMIN PO (07:59)
[2024-05-05] MEDS: HEPARIN 5000 UNITS SC ×3 (08:00→23:16)
--- NOTE | 2024-05-05 08:32 | PHA.VAN.FU ---
Vancomycin Assessment / Plan
- Assessment
Renal Function: Stable
WBC's are: WNL
In the past 24 hrs, patient has been: Afebrile
Concomitant Antimicrobials: AZITHROMYCIN, CEFEPIME, METRONIDAZOLE
- Dosing Plan
Continue: 1000MG Q24H
- Monitoring Plan
Peak Level: 05/06 @0830
Trough Level: 05/07 @0530
- Follow Up
Pharmacy will continue to follow.
Vancomycin Follow UP
- -
Patient Age: 88
Patient Sex: Male
Vancomycin Day #: 4
Indication: Pulmonary/Respiratory
Requesting Provider: Dr. Vincent
Pertinent Antimicrobial Allergies:
NKDA
Height / Weight:
Height 5 ft 10 in
Actual Weight 89.925 kg
Pertinent Past Medical History: CKD (baseline SCR ~1.4)
- Vital Signs / Lab Results
Temp Pulse Resp BP Pulse Ox
98.1 F 55 16 134/64 96
05/05/24 07:15 05/05/24 07:59 05/05/24 07:15 05/05/24 07:59 05/05/24 07:15
Lab Results - Hematology
05/03/24 05/04/24 05/05/24
06:02 07:01 06:38
WBC 7.0 5.7 6.6
Lab Results - Chemistry
05/03/24 05/04/24 05/05/24
06:02 07:00 06:38
BUN 38 H 35 H 36 H
Creatinine 1.5 H 1.4 H 1.5 H
Estimated Creat Clear 35 38 35
05/02/24
11:15
Lactic Acid Cancelled
Microbiology Results
05/02/24 07:51 Blood Culture - Preliminary
Blood/Venous No Growth in 72 hours- Final report to follow
05/02/24 07:25 Blood Culture - Preliminary
Blood/Venous No Growth in 72 hours- Final report to follow
Therapeutic Drug Monitoring
Random Vancomycin 11.9 ug/ml 05/04/24 07:00
[2024-05-05] MEDS: MAXIPIME 1000 MG IV (10:43)
[2024-05-05] MEDS: STERILE WATER FOR INJECTION 10 ML IV (10:43)
--- NOTE | 2024-05-05 10:59 | W.PN.HOSP.TC ---
Today's Communication/Plan
-
see A/P
Assessment / Plan
Assessment / Plan
HPI: 88-year-old male PMH dementia, hypertension, hyperlipidemia, BPH, hypothyroidism, CAD, right ear deafness, CKD; p/w shortness of breath and fever that started in the morning of admission.
He is a poor historian due to dementia.
He is arousable but not orientated; this is his baseline mental status per KENZIE at bedside.
CXR:
mild increased stranding in the left lung base, with obscuration of the left hemidiaphragm. Minimal blunting of the left costophrenic angle.
A/P:
# Sepsis POA due to CAP
# Acute hypoxic respiratory insufficiency, resolved
Pt was placed on 2L NC, weaned to RA, he is not on home O2
CXR noted left lung stranding
COVID/Flu neg, blood Cx negative
MRSA screen positive
IV Abx cefepime, Vanc, azithromycin, Flagyl would be changed to PO Cefdinir, doxycycline, Flagyl due to recurrent IV site infiltration
# Dementia
# Dysphagia ruled out with VSE
Pt is awake but not orientated
OK for solid and thin liquid per SPL
# STACEY on CKD3a
Scr 1.9 -> 1.5; baseline creatinine at 1.4.
# Non-ischemic myocardial injury
# Chronic LE edema, improved after IV Lasix
Echo: Normal biventricular size and systolic function. Stage I diastolic dysfunction. No significant change since the prior study of 10/25/2019.
daughter states that pt has never been on diuretic
s/p IV lasix 40 mg x1 , will give additional dose today
Recc PO lasix PRN upon discharge for ankle swelling
monitor SCr
Cont SUPERVISOR MOTORCYCLE REPAIR SHOP Compression stocking (daughter to bring in)
# Hypothyroidism
cont Levoxyl
# Essential HTN
Cont SUPERVISOR MOTORCYCLE REPAIR SHOP atenolol with holding parameter
# HLD
# CAD
# BPH
# h/o TURP
cont Flomax
DNR
DVT ppx: heparin SQ
DW RN
Anticipated Discharge: Within 24 hours
Subjective/Interval History
-
Date of Service: May 05, 2024
Objective Data
-
Labs:
Laboratory Results
05/05/24
06:38
WBC 6.6
Hgb 12.2 L
Hct 35.6 L
Plt Count 194
Sodium 138
Potassium 3.9
Chloride 105
Carbon Dioxide 26
BUN 36 H
Creatinine 1.5 H
Glucose 107 H
Calcium 9.0
Vital Signs:
Vital Signs
Temp Pulse Resp BP Pulse Ox
36.7 C 55 16 134/64 96
05/05/24 07:15 05/05/24 07:59 05/05/24 07:15 05/05/24 07:59 05/05/24 07:15
I&O
05/04/24 05/05/24 05/06/24
06:59 06:59 06:59
Intake Total 1330 / 1330 800 / 800
Output Total 700 / 700
Balance 1330 / 1330 100 / 100
Review of Systems
-
Unable to obtain full review of systems at this time due to: Dementia
Physical Exam
-
General: Well Developed, Well Nourished and Comfortable
HEENT: Normocephalic, Atraumatic and Hearing Impaired; Negative Oxygen
Respiratory: Clear to Auscultation, Non Labored Respirations and Other (harsh breath sound); Negative Accessory Resp Muscle Use
Cardiac: Regular Rhythm and S1/S2; Negative Murmur
GI: Soft, Nontender and Normal Bowel Sounds
Musculoskeletal: Edema, Right Lower Extrem (improved ) and Edema, Left Lower Extrem (improved )
Neuro: Awake
Psych: Calm and Apparent Dementia
Data Reviewed
-
Diagnostic Radiology: Image personally visualized and interpreted and Report Reviewed by me
Labs: Labs Reviewed by me
[2024-05-05 11:05] VITALS: BP 145/66
[2024-05-05] MEDS: LASIX 40 MG IV (11:46)
[2024-05-05 15:10] VITALS: BP 148/70
[2024-05-05] MEDS: FLAGYL 500 MG PO ×2 (16:17→23:16)
[2024-05-05] MEDS: OMNICEF 300 MG PO (20:35)
[2024-05-05] MEDS: STERILE WATER FOR INJECTION IV (20:36)
[2024-05-05] MEDS: VIBRAMYCIN 100 MG PO (20:36)
[2024-05-05 23:32] VITALS: BP 133/82
[2024-05-06] MEDS: SYNTHROID 125 MCG PO (05:08)
[2024-05-06 06:50] LABS: % Basophils 0.6 % (0-2); % Eosinophils 3.1 % (0-6); % Immature Granulocytes 1.7 % (0-0.5); % Lymphocytes 16.6 % (20.5-51.1); % Monocytes 11.7 % (1.7-9.3); % Neutrophils 66.3 % (42.2-75.2); Absolute Eosinophils 0.2 10^3/uL (0-0.7); Absolute Immature Granulocytes 0.1 10^3/uL (0-0.05); Absolute Lymphocytes 1.2 10^3/uL (1.2-3.4); Absolute Monocytes 0.8 10^3/uL (0.1-0.6); Absolute Neutrophils 4.8 10^3/uL (1.4-6.5); Hematocrit 35.8 % (39.0-52.0); Hemoglobin 12.8 g/dL (13.0-18.0); Mean Corp Hgb Conc. 35.8 g/dL (33.0-37.0); Mean Corpuscular Hgb 31.7 pg (27.0-31.0); Mean Corpuscular Volume 88.6 fL (80.0-94.0); Nucleated Red Blood Cells % 0 % (-); Platelet Count 193 10^3/uL (130-400); Red Blood Cell Count 4.04 10^6/uL (4.70-6.10); Red Cell Dist. Width 12.5 % (11.5-14.5); White Blood Cell Count 7.2 10^3/uL (4.8-10.8)
[2024-05-06 07:20] VITALS: BP 125/63
[2024-05-06 07:29] LABS: Blood Urea Nitrogen 30 mg/dl (9-20); Carbon Dioxide 27 mmol/L (22-30); Chloride 103 mmol/L (98-107); Estimated Creatinine Clearance 38 ml/min; Glucose 108 mg/dl (70-99); Potassium 3.7 mmol/L (3.5-5.1); Sodium 138 mmol/L (135-145); eGFR 48.34
[2024-05-06] MEDS: STERILE WATER FOR INJECTION IV (07:38)
[2024-05-06 08:58] LABS: Vancomycin Peak 13.9 ug/ml (18-26)
[2024-05-06] MEDS: OMNICEF 300 MG PO (09:06)
[2024-05-06] MEDS: VIBRAMYCIN 100 MG PO (09:06)
[2024-05-06] MEDS: TENORMIN 25 MG PO (09:06)
[2024-05-06] MEDS: FLAGYL 500 MG PO (09:07)
[2024-05-06] MEDS: HEPARIN 5000 UNITS SC (09:07)
[2024-05-06] MEDS: PROSCAR 5 MG PO (09:07)
--- NOTE | 2024-05-06 10:16 | CM ---
Addendum entered by Patti Garcia RN 05/06/24 13:01:
CM reviewed chart. Patient for discharge to [facility].
Report to Nursing Heavy Machinery Assembler; call the front office manager at [phone] and ask for the Nursing Heavy Machinery Assembler.
Fax report to: [phone]
Medical necessity and transport form on chart.
Original Note:
IMM reviewed and placed on chart.
--- NOTE | 2024-05-06 11:43 | W.PN.HOSP.TC ---
Addendum entered and electronically signed by Ashley Vincent MD 05/06/24 14:15:
total DC time 40 min
Original Note:
Today's Communication/Plan
-
see A/P
Assessment / Plan
Assessment / Plan
HPI: 88-year-old male PMH dementia, hypertension, hyperlipidemia, BPH, hypothyroidism, CAD, right ear deafness, CKD; p/w shortness of breath and fever that started in the morning of admission.
He is a poor historian due to dementia.
He is arousable but not orientated; this is his baseline mental status per KENZIE at bedside.
CXR:
mild increased stranding in the left lung base, with obscuration of the left hemidiaphragm. Minimal blunting of the left costophrenic angle.
A/P:
# Sepsis POA due to CAP
# Acute hypoxic respiratory insufficiency, resolved
Pt was placed on 2L NC, weaned to RA, he is not on home O2
CXR noted left lung stranding
COVID/Flu neg, blood Cx negative
MRSA screen positive
IV Abx cefepime, Vanc, azithromycin, Flagyl changed to PO Cefdinir, doxycycline, Flagyl due to recurrent IV site infiltration
# Dementia
# Dysphagia ruled out with VSE
Pt is awake but not orientated
OK for solid and thin liquid per SPL
# STACEY on CKD3a
Scr 1.9 -> 1.4 today; baseline creatinine at 1.4.
# Non-ischemic myocardial injury
# Chronic LE edema, improved after IV Lasix
Echo: Normal biventricular size and systolic function. Stage I diastolic dysfunction. No significant change since the prior study of 10/25/2019.
daughter states that pt has never been on diuretic
s/p IV lasix 40 mg x2 for pedal edema
Recc PO lasix PRN upon discharge for ankle swelling
monitor SCr
Cont BUTT PRESSER Compression stocking (daughter to bring in)
# Hypothyroidism
cont Levoxyl
# Essential HTN
Cont BUTT PRESSER atenolol with holding parameter
# HLD
# CAD
# BPH
# h/o TURP
cont Flomax
DNR
DVT ppx: heparin SQ
Dispo: SNF
Anticipated Discharge: Within 24 hours
Subjective/Interval History
-
Date of Service: May 06, 2024
Objective Data
-
Labs:
Laboratory Results
05/06/24
06:01
WBC 7.2
Hgb 12.8 L
Hct 35.8 L
Plt Count 193
Sodium 138
Potassium 3.7
Chloride 103
Carbon Dioxide 27
BUN 30 H
Creatinine 1.4 H
Glucose 108 H
Calcium 9.0
Vital Signs:
Vital Signs
Temp Pulse Resp BP Pulse Ox
37.5 C 68 16 125/63 92
05/06/24 07:20 05/06/24 09:06 05/06/24 07:20 05/06/24 09:06 05/06/24 07:20
I&O
05/05/24 05/06/24 05/07/24
06:59 06:59 06:59
Intake Total 800 / 800 240 / 240
Output Total 700 / 700 1810 / 1810
Balance 100 / 100 -1570 / -1570
Review of Systems
-
Unable to obtain full review of systems at this time due to: Dementia
Physical Exam
-
General: Well Developed, Well Nourished and Comfortable
HEENT: Normocephalic, Atraumatic and Hearing Impaired; Negative Oxygen
Respiratory: Clear to Auscultation and Non Labored Respirations; Negative Accessory Resp Muscle Use
Cardiac: Regular Rhythm and S1/S2; Negative Murmur
GI: Soft, Nontender and Normal Bowel Sounds
Musculoskeletal: Edema, Right Lower Extrem (improved ) and Edema, Left Lower Extrem (improved )
Neuro: Awake
Psych: Calm and Apparent Dementia
Data Reviewed
-
Diagnostic Radiology: Image personally visualized and interpreted and Report Reviewed by me
Labs: Labs Reviewed by me
--- NOTE | 2024-05-06 13:59 | W.DCSUMMARY ---
Discharge Summary
Discharge Data
Date of Admission: 05/02/24
Date of Discharge: 05/06/24
-
Pending Results: No
Hospital Course
Principal Diagnosis:
Sepsis due to community acquired pneumonia (CAP)
Resolved acute hypoxic respiratory insufficiency.
Acute kidney disease (STACEY) on chronic kidney disease (CKD) stage IIIa
Chronic Diagnoses:�
Dementia, awake but not orientated
Hypothyroidism
Essential hypertension
Hyperlipidemia
History of coronary artery disease
Benign prostate hypertrophy
History of Transurethral resection of the prostate
Chronic lower extremity edema, improved after IV Lasix
Consultations:�
None
Procedures:�
None
Clinical course:�
This is a 88-year-old male with past medical history as stated above, who presented with shortness of breath and fever. His chest x-ray showed mild stranding of the left lung base.
Problem 1:
Sepsis due to left lower lobe community acquired pneumonia (CAP).
This was associated with acute hypoxic respiratory insufficiency, which resolved (weaned from 2 L nasal cannula O2 support, back to room air).
His COVID/Flu tests were negative and blood culture negative.
His MRSA screen was noted to be positive.
He received IV antibiotics cefepime, vancomycin, azithromycin, and Flagyl initially; and these were transitioned to oral cefdinir, doxycycline, and Flagyl, which he still needs to take 1 more day after discharge.
Of note, dysphagia was ruled out by video swallow eval. He can continue with solid food with thin liquid diet.
Problem 2:
STACEY on CKD stage 3a
He serum creatinine down trended from 1.9 on admission to 1.4, which is at his baseline.
Problem 3:
Chronic bilateral lower extremity edema, improved after IV Lasix.
His echo showed stage I diastolic dysfunction, otherwise no significant change since the prior study of 10/25/2019.
He received IV Lasix 40 mg x 2 doses during his hospital stay, which significantly improved his pedal edema.
He can continue with as needed oral Lasix for worsening pedal edema and weight gain following discharge.
He can continue with his prior to admission compression stocking as well.
As for the rest of his medical problems, they were stable during his hospital stay.
Discharge Plan
-
Patient Disposition: Longterm/SNF
Discharge Diagnosis/Procedures: Sepsis due to community acquired pneumonia; resolved acute hypoxic respiratory insufficiency; Dementia; Chronic leg edema improved after IV Lasix
Condition: Fair
Diet: Regular, Low Fat, Low Cholesterol, Low Sodium and Restrict fluids to 64 oz
Activity: As tolerated
Driving Restrictions: No driving
Specialty Instructions: Weigh Daily- Call MD for wt gain/loss 3 lbs overnight/5 lbs in 1 week
Referrals:
Donn Canas, DO [Family Provider] - in less than 1 week
Additional Discharge Medication Instructions: Continue antibiotics Cefdinir, doxycycline, flagyl for 1 more day, then stop.
Take lasix as needed (for weight gain > 3 pound a day or worsening ankle swelling)
Prescriptions:
New
metronidazole 500 mg Tablet
500 mg PO Q8 1 Days Qty: 3 0RF
cefdinir 300 mg Capsule
300 mg PO Q12 1 Days Qty: 2 0RF
doxycycline hyclate 100 mg Capsule
100 mg PO Q12 1 Days Qty: 2 0RF
furosemide [Lasix] 40 mg tablet
40 mg PO DAILY PRN (Reason: edema) Qty: 30 0RF
Continued
atenolol 25 mg Tablet
25 mg PO DAILY Qty: 30 0RF
finasteride 5 mg Tablet
5 mg PO DAILY Qty: 30 0RF
cholecalciferol (vitamin D3) 25 mcg (1,000 unit) Tablet
1,000 unit PO HS Qty: 30 0RF
magnesium hydroxide [Milk of Magnesia] 400 mg/5 mL Suspension
30 ml PO Q96H PRN (Reason: day 4 no bm)
levothyroxine 125 mcg tablet
125 mcg PO DAILY
acetaminophen 325 mg capsule
650 mg PO Q4HPRN PRN (Reason: fever or mild pain)
Discharge Orders:
Discharge Patient (As Directed); Ordered 05/06/24
Ordered By: Ashley Vincent
Discharge Date and Time
Print Language: NORWEGIAN
[2024-05-06 14:25] VITALS: BP 121/58
--- NOTE | 2024-05-06 15:38 | PTCARENOTE ---
[facility] Acute care here to transport patient. Daughter and patients updated at bedside.
== END 2024-05-06 15:47 | DRG 871 ==
LOC: 2 NORTH 11:14
PROVIDERS: ADMITTING PHYSICIAN Internal Medicine; EMERGENCY PHYSICIAN Emergency Medicine; FAMILY PHYSICIAN Family Medicine
DX: A41.9 Sepsis, unspecified organism (principal); J18.9 Pneumonia, unspecified organism; J96.01 Acute respiratory failure with hypoxia; N17.9 Acute kidney failure, unspecified; I5A Non-ischemic myocardial injury (non-traumatic); F03.90 Unspecified dementia, unspecified severity, without behavioral disturbance, psychotic disturbance, mood disturbance, and anxiety; E03.9 Hypothyroidism, unspecified; I12.9 Hypertensive chronic kidney disease with stage 1 through stage 4 chronic kidney disease, or unspecified chronic kidney disease; N18.31 Chronic kidney disease, stage 3a; Z66 Do not resuscitate; E87.5 Hyperkalemia; I25.10 Atherosclerotic heart disease of native coronary artery without angina pectoris; I25.2 Old myocardial infarction; N40.0 Benign prostatic hyperplasia without lower urinary tract symptoms; H91.91 Unspecified hearing loss, right ear; R60.0 Localized edema; Z79.890 Hormone replacement therapy; Z79.899 Other long term (current) drug therapy; Z90.79 Acquired absence of other genital organ(s)
CPT/HCPCS: 71045; 74230; 80048; 80053; 80202; 83605; 83880; 84484; 85025; 87040; 87070; 87205; 87502; 87641; 87811; 92526; 92610; 92611; 93005; 93306; 94667; 94760; 96361; 96365; 96366; 96375; 97163; 97530; 99285

== ENCOUNTER → 2024-05-08 09:35 | Outpatient (REF) | payer OTHER, SELFPAY ==
[2024-05-08 11:38] LABS: Blood Urea Nitrogen 28 mg/dl (9-20); Calcium 9.1 mg/dl (8.4-10.2); Carbon Dioxide 25 mmol/L (22-30); Chloride 105 mmol/L (98-107); Glucose 99 mg/dl (70-99); Sodium 138 mmol/L (135-145); eGFR 48.34
[2024-05-08 11:41] LABS: Hematocrit 35.4 % (39.0-52.0); Hemoglobin 12.1 g/dL (13.0-18.0); Mean Corp Hgb Conc. 34.2 g/dL (33.0-37.0); Mean Corpuscular Hgb 31.5 pg (27.0-31.0); Mean Corpuscular Volume 92.2 fL (80.0-94.0); Mean Platelet Volume 11.1 fL (7.4-10.4); Platelet Count 243 10^3/uL (130-400); Red Blood Cell Count 3.84 10^6/uL (4.70-6.10); Red Cell Dist. Width 12.8 % (11.5-14.5); White Blood Cell Count 9.2 10^3/uL (4.8-10.8)
== END ==
LOC: OLABP 09:35
PROVIDERS: ATTENDING PHYSICIAN Family Medicine
DX: A41.9 Sepsis, unspecified organism (principal); J18.9 Pneumonia, unspecified organism; I21.4 Non-ST elevation (NSTEMI) myocardial infarction; I13.10 Hypertensive heart and chronic kidney disease without heart failure, with stage 1 through stage 4 chronic kidney disease, or unspecified chronic kidney disease; I25.10 Atherosclerotic heart disease of native coronary artery without angina pectoris; N18.30 Chronic kidney disease, stage 3 unspecified; N40.0 Benign prostatic hyperplasia without lower urinary tract symptoms; F03.90 Unspecified dementia, unspecified severity, without behavioral disturbance, psychotic disturbance, mood disturbance, and anxiety
CPT/HCPCS: 36415; 80048; 85027

== ENCOUNTER → 2024-05-18 10:33 | Outpatient (REF) | payer OTHER, MEDICARE, SELFPAY ==
[2024-05-18 12:12] LABS: % Basophils 1.2 % (0-2); % Eosinophils 3.8 % (0-6); % Immature Granulocytes 0.3 % (0-0.5); % Lymphocytes 32.7 % (20.5-51.1); % Monocytes 13.2 % (1.7-9.3); % Neutrophils 48.8 % (42.2-75.2); Absolute Basophils 0.1 10^3/uL (0-0.2); Absolute Eosinophils 0.3 10^3/uL (0-0.7); Absolute Lymphocytes 2.2 10^3/uL (1.2-3.4); Absolute Monocytes 0.9 10^3/uL (0.1-0.6); Absolute Neutrophils 3.2 10^3/uL (1.4-6.5); Hematocrit 37.6 % (39.0-52.0); Hemoglobin 12.2 g/dL (13.0-18.0); Mean Corp Hgb Conc. 32.4 g/dL (33.0-37.0); Mean Corpuscular Volume 95.7 fL (80.0-94.0); Mean Platelet Volume 10.9 fL (7.4-10.4); Nucleated Red Blood Cells % 0 % (-); Platelet Count 295 10^3/uL (130-400); Red Blood Cell Count 3.93 10^6/uL (4.70-6.10); White Blood Cell Count 6.6 10^3/uL (4.8-10.8)
[2024-05-18 12:32] LABS: Blood Urea Nitrogen 23 mg/dl (9-20); Calcium 9.4 mg/dl (8.4-10.2); Carbon Dioxide 26 mmol/L (22-30); Chloride 108 mmol/L (98-107); Glucose 98 mg/dl (70-99); Potassium 4.6 mmol/L (3.5-5.1); Sodium 140 mmol/L (135-145); eGFR 48.34
== END ==
LOC: OLABP 10:33
PROVIDERS: ATTENDING PHYSICIAN Family Medicine
DX: A41.9 Sepsis, unspecified organism (principal); J18.9 Pneumonia, unspecified organism; I21.4 Non-ST elevation (NSTEMI) myocardial infarction; I13.10 Hypertensive heart and chronic kidney disease without heart failure, with stage 1 through stage 4 chronic kidney disease, or unspecified chronic kidney disease; I25.10 Atherosclerotic heart disease of native coronary artery without angina pectoris; N18.30 Chronic kidney disease, stage 3 unspecified; N40.0 Benign prostatic hyperplasia without lower urinary tract symptoms; F03.90 Unspecified dementia, unspecified severity, without behavioral disturbance, psychotic disturbance, mood disturbance, and anxiety
CPT/HCPCS: 36415; 80048; 85025

== ENCOUNTER → 2024-08-16 12:27 | Outpatient (REF) | payer MEDICARE, OTHER, SELFPAY ==
[2024-08-16 13:56] LABS: Blood Urea Nitrogen 34 mg/dl (9-20); Calcium 9.3 mg/dl (8.4-10.2); Carbon Dioxide 27 mmol/L (22-30); Chloride 105 mmol/L (98-107); Glucose 99 mg/dl (70-99); Potassium 4.3 mmol/L (3.5-5.1); Sodium 143 mmol/L (135-145); eGFR 41.19
== END ==
LOC: OLABP 12:27
PROVIDERS: ATTENDING PHYSICIAN Internal Medicine
DX: Z13.228 Encounter for screening for other metabolic disorders (principal)
CPT/HCPCS: 36415; 80048

== ENCOUNTER → 2024-08-23 10:36 | Outpatient (REF) | payer MEDICARE, OTHER, SELFPAY ==
[2024-08-23 11:23] LABS: Blood Urea Nitrogen 31 mg/dl (9-20); Calcium 9.5 mg/dl (8.4-10.2); Carbon Dioxide 28 mmol/L (22-30); Chloride 105 mmol/L (98-107); Glucose 102 mg/dl (70-99); Potassium 4.1 mmol/L (3.5-5.1); Sodium 143 mmol/L (135-145)
== END ==
LOC: OLABPG 10:36
PROVIDERS: ATTENDING PHYSICIAN Internal Medicine
DX: N18.9 Chronic kidney disease, unspecified (principal)
CPT/HCPCS: 36415; 80048

== ENCOUNTER → 2024-09-20 11:45 | Outpatient (REF) | payer MEDICARE, OTHER, SELFPAY ==
[2024-09-20 12:33] LABS: Blood Urea Nitrogen 33 mg/dl (9-20); Calcium 8.6 mg/dl (8.4-10.2); Carbon Dioxide 27 mmol/L (22-30); Chloride 105 mmol/L (98-107); Glucose 114 mg/dl (70-99); Potassium 3.9 mmol/L (3.5-5.1); Sodium 144 mmol/L (135-145)
== END ==
LOC: OLABPG 11:45
PROVIDERS: ATTENDING PHYSICIAN Internal Medicine
DX: I10 Essential (primary) hypertension (principal)
CPT/HCPCS: 36415; 80048

== ENCOUNTER → 2024-10-23 10:19 | Outpatient (REF) | payer MEDICARE, OTHER, SELFPAY ==
[2024-10-23 11:21] LABS: Blood Urea Nitrogen 21 mg/dl (9-20); Carbon Dioxide 28 mmol/L (22-30); Chloride 106 mmol/L (98-107); Glucose 99 mg/dl (70-99); Potassium 4.5 mmol/L (3.5-5.1); Sodium 141 mmol/L (135-145); eGFR 44.23
== END ==
LOC: OLABP 10:19
PROVIDERS: ATTENDING PHYSICIAN Physician Assistant
DX: N40.0 Benign prostatic hyperplasia without lower urinary tract symptoms (principal)
CPT/HCPCS: 36415; 80048

== ENCOUNTER → 2024-11-12 10:55 | Outpatient (REF) | payer OTHER, MEDICARE, SELFPAY ==
[2024-11-12 11:57] LABS: Hematocrit 36.3 % (39.0-52.0); Hemoglobin 11.5 g/dL (13.0-18.0); Mean Corp Hgb Conc. 31.7 g/dL (33.0-37.0); Mean Corpuscular Hgb 30.9 pg (27.0-31.0); Mean Corpuscular Volume 97.6 fL (80.0-94.0); Platelet Count 221 10^3/uL (130-400); Red Blood Cell Count 3.72 10^6/uL (4.70-6.10); Red Cell Dist. Width 13.2 % (11.5-14.5); White Blood Cell Count 5.6 10^3/uL (4.8-10.8)
[2024-11-12 12:19] LABS: Blood Urea Nitrogen 26 mg/dl (9-20); Carbon Dioxide 31 mmol/L (22-30); Chloride 105 mmol/L (98-107); Glucose 107 mg/dl (70-99); Potassium 4.1 mmol/L (3.5-5.1); Sodium 139 mmol/L (135-145); eGFR 38.06
== END ==
LOC: OLABP 10:55
PROVIDERS: ATTENDING PHYSICIAN Family Medicine
DX: F03.90 Unspecified dementia, unspecified severity, without behavioral disturbance, psychotic disturbance, mood disturbance, and anxiety (principal); H91.91 Unspecified hearing loss, right ear; R26.2 Difficulty in walking, not elsewhere classified; I10 Essential (primary) hypertension; I25.10 Atherosclerotic heart disease of native coronary artery without angina pectoris; E78.5 Hyperlipidemia, unspecified
CPT/HCPCS: 36415; 80048; 85027

== ENCOUNTER → 2024-11-27 09:49 | Outpatient (REF) | payer MEDICARE, OTHER, SELFPAY ==
[2024-11-27 11:43] LABS: % Basophils 0.9 % (0-2); % Eosinophils 3.3 % (0-6); % Immature Granulocytes 0.3 % (0-0.5); % Lymphocytes 36.2 % (20.5-51.1); % Neutrophils 47.3 % (42.2-75.2); Absolute Basophils 0.1 10^3/uL (0-0.2); Absolute Eosinophils 0.2 10^3/uL (0-0.7); Absolute Lymphocytes 2.1 10^3/uL (1.2-3.4); Absolute Monocytes 0.7 10^3/uL (0.1-0.6); Absolute Neutrophils 2.7 10^3/uL (1.4-6.5); Mean Corp Hgb Conc. 32.5 g/dL (33.0-37.0); Mean Corpuscular Hgb 31.3 pg (27.0-31.0); Mean Corpuscular Volume 96.4 fL (80.0-94.0); Mean Platelet Volume 11.6 fL (7.4-10.4); Nucleated Red Blood Cells % 0 % (-); Platelet Count 238 10^3/uL (130-400); Red Blood Cell Count 4.15 10^6/uL (4.70-6.10); Red Cell Dist. Width 13.3 % (11.5-14.5); White Blood Cell Count 5.8 10^3/uL (4.8-10.8)
[2024-11-27 11:50] LABS: ALT (SGPT) 20 U/L (0-50); AST (SGOT) 23 U/L (17-59); Albumin 3.5 g/dl (3.5-5.0); Alkaline Phosphatase 53 U/L (38-126); Blood Urea Nitrogen 30 mg/dl (9-20); Carbon Dioxide 30 mmol/L (22-30); Chloride 102 mmol/L (98-107); Glucose 104 mg/dl (70-99); Potassium 4.4 mmol/L (3.5-5.1); Sodium 138 mmol/L (135-145); Total Bilirubin 0.9 mg/dl (0.2-1.3); eGFR 38.06
[2024-11-27 12:19] LABS: TSH 8.18 uIU/ml (0.47-4.68)
== END ==
LOC: OLABPV 09:49
PROVIDERS: ATTENDING PHYSICIAN Family Medicine
DX: R26.2 Difficulty in walking, not elsewhere classified (principal); I25.10 Atherosclerotic heart disease of native coronary artery without angina pectoris; N18.30 Chronic kidney disease, stage 3 unspecified; E03.9 Hypothyroidism, unspecified; H91.91 Unspecified hearing loss, right ear; F03.90 Unspecified dementia, unspecified severity, without behavioral disturbance, psychotic disturbance, mood disturbance, and anxiety
CPT/HCPCS: 36415; 80053; 84443; 85025

== ENCOUNTER → 2024-12-17 14:31 | Outpatient (REF) | payer MEDICARE, OTHER, SELFPAY ==
[2024-12-17 15:12] LABS: Blood Urea Nitrogen 30 mg/dl (9-20); Carbon Dioxide 33 mmol/L (22-30); Chloride 102 mmol/L (98-107); Glucose 108 mg/dl (70-99); Potassium 3.7 mmol/L (3.5-5.1); Sodium 141 mmol/L (135-145); eGFR 35.54
== END ==
LOC: OLABP 14:31
PROVIDERS: ATTENDING PHYSICIAN Family Medicine
DX: H91.91 Unspecified hearing loss, right ear (principal); F03.90 Unspecified dementia, unspecified severity, without behavioral disturbance, psychotic disturbance, mood disturbance, and anxiety; R26.2 Difficulty in walking, not elsewhere classified; I13.10 Hypertensive heart and chronic kidney disease without heart failure, with stage 1 through stage 4 chronic kidney disease, or unspecified chronic kidney disease; I25.10 Atherosclerotic heart disease of native coronary artery without angina pectoris
CPT/HCPCS: 36415; 80048

== ENCOUNTER → 2024-12-24 08:44 | Outpatient (REF) | payer MEDICARE, OTHER, SELFPAY ==
[2024-12-24 10:17] LABS: % Basophils 0.7 % (0-2); % Immature Granulocytes 0.4 % (0-0.5); % Lymphocytes 33.8 % (20.5-51.1); % Monocytes 11.1 % (1.7-9.3); Absolute Eosinophils 0.2 10^3/uL (0-0.7); Absolute Lymphocytes 1.8 10^3/uL (1.2-3.4); Absolute Monocytes 0.6 10^3/uL (0.1-0.6); Absolute Neutrophils 2.8 10^3/uL (1.4-6.5); Hematocrit 35.6 % (39.0-52.0); Hemoglobin 12.1 g/dL (13.0-18.0); Mean Corpuscular Hgb 31.5 pg (27.0-31.0); Mean Corpuscular Volume 92.7 fL (80.0-94.0); Mean Platelet Volume 10.9 fL (7.4-10.4); Nucleated Red Blood Cells % 0 % (-); Platelet Count 201 10^3/uL (130-400); Red Blood Cell Count 3.84 10^6/uL (4.70-6.10); Red Cell Dist. Width 13.1 % (11.5-14.5); White Blood Cell Count 5.4 10^3/uL (4.8-10.8)
[2024-12-24 10:25] LABS: ALT (SGPT) 18 U/L (0-50); AST (SGOT) 22 U/L (17-59); Albumin 3.6 g/dl (3.5-5.0); Alkaline Phosphatase 56 U/L (38-126); Blood Urea Nitrogen 27 mg/dl (9-20); Calcium 8.7 mg/dl (8.4-10.2); Carbon Dioxide 28 mmol/L (22-30); Chloride 103 mmol/L (98-107); Glucose 101 mg/dl (70-99); Sodium 138 mmol/L (135-145); Total Bilirubin 0.8 mg/dl (0.2-1.3); Total Protein 6.3 g/dl (6.3-8.2); eGFR 38.06
[2024-12-24 10:43] LABS: TSH 3.52 uIU/ml (0.47-4.68)
== END ==
LOC: OLABP 08:44
PROVIDERS: ATTENDING PHYSICIAN Family Medicine
DX: F03.90 Unspecified dementia, unspecified severity, without behavioral disturbance, psychotic disturbance, mood disturbance, and anxiety (principal); H91.90 Unspecified hearing loss, unspecified ear; E03.9 Hypothyroidism, unspecified; R26.2 Difficulty in walking, not elsewhere classified; I13.10 Hypertensive heart and chronic kidney disease without heart failure, with stage 1 through stage 4 chronic kidney disease, or unspecified chronic kidney disease; I25.10 Atherosclerotic heart disease of native coronary artery without angina pectoris; E78.5 Hyperlipidemia, unspecified; J18.9 Pneumonia, unspecified organism
CPT/HCPCS: 36415; 80053; 84443; 85025

== ENCOUNTER → 2025-01-21 10:12 | Outpatient (REF) | payer MEDICARE, OTHER, SELFPAY ==
[2025-01-21 11:12] LABS: % Basophils 0.8 % (0-2); % Immature Granulocytes 0.5 % (0-0.5); % Lymphocytes 30.1 % (20.5-51.1); % Monocytes 12.5 % (1.7-9.3); % Neutrophils 53.1 % (42.2-75.2); Absolute Basophils 0.1 10^3/uL (0-0.2); Absolute Eosinophils 0.2 10^3/uL (0-0.7); Absolute Lymphocytes 1.8 10^3/uL (1.2-3.4); Absolute Monocytes 0.7 10^3/uL (0.1-0.6); Absolute Neutrophils 3.1 10^3/uL (1.4-6.5); Hematocrit 36.7 % (39.0-52.0); Hemoglobin 12.6 g/dL (13.0-18.0); Mean Corp Hgb Conc. 34.3 g/dL (33.0-37.0); Mean Corpuscular Hgb 31.8 pg (27.0-31.0); Mean Corpuscular Volume 92.7 fL (80.0-94.0); Nucleated Red Blood Cells % 0 % (-); Platelet Count 221 10^3/uL (130-400); Red Blood Cell Count 3.96 10^6/uL (4.70-6.10); Red Cell Dist. Width 13.2 % (11.5-14.5); White Blood Cell Count 5.9 10^3/uL (4.8-10.8)
[2025-01-21 11:35] LABS: Blood Urea Nitrogen 30 mg/dl (9-20); Calcium 9.3 mg/dl (8.4-10.2); Carbon Dioxide 29 mmol/L (22-30); Chloride 103 mmol/L (98-107); Glucose 103 mg/dl (70-99); Sodium 138 mmol/L (135-145); eGFR 44.23
== END ==
LOC: OLABP 10:12
PROVIDERS: ATTENDING PHYSICIAN Family Medicine
DX: F03.90 Unspecified dementia, unspecified severity, without behavioral disturbance, psychotic disturbance, mood disturbance, and anxiety (principal); R26.2 Difficulty in walking, not elsewhere classified; E78.5 Hyperlipidemia, unspecified; I25.10 Atherosclerotic heart disease of native coronary artery without angina pectoris
CPT/HCPCS: 36415; 80048; 85025

== ENCOUNTER → 2025-03-14 14:49 | Outpatient (REF) | payer MEDICARE, OTHER, SELFPAY ==
[2025-03-14 15:21] LABS: % Basophils 0.2 % (0-2); % Immature Granulocytes 0.5 % (0-0.5); % Lymphocytes 3.8 % (20.5-51.1); % Monocytes 5.8 % (1.7-9.3); % Neutrophils 89.7 % (42.2-75.2); Absolute Immature Granulocytes 0.1 10^3/uL (0-0.05); Absolute Lymphocytes 0.4 10^3/uL (1.2-3.4); Absolute Monocytes 0.7 10^3/uL (0.1-0.6); Absolute Neutrophils 10.4 10^3/uL (1.4-6.5); Hematocrit 44.4 % (39.0-52.0); Hemoglobin 14.8 g/dL (13.0-18.0); Mean Corp Hgb Conc. 33.3 g/dL (33.0-37.0); Mean Corpuscular Hgb 32.5 pg (27.0-31.0); Mean Corpuscular Volume 97.6 fL (80.0-94.0); Mean Platelet Volume 10.8 fL (7.4-10.4); Nucleated Red Blood Cells % 0 % (-); Platelet Count 232 10^3/uL (130-400); Red Blood Cell Count 4.55 10^6/uL (4.70-6.10); Red Cell Dist. Width 13.2 % (11.5-14.5); White Blood Cell Count 11.6 10^3/uL (4.8-10.8)
[2025-03-14 15:25] LABS: AST (SGOT) 22 U/L (17-59); Albumin 3.7 g/dl (3.5-5.0); Alkaline Phosphatase 51 U/L (38-126); Blood Urea Nitrogen 39 mg/dl (9-20); Calcium 9.3 mg/dl (8.4-10.2); Carbon Dioxide 28 mmol/L (22-30); Chloride 104 mmol/L (98-107); Glucose 142 mg/dl (70-99); Potassium 4.6 mmol/L (3.5-5.1); Sodium 145 mmol/L (135-145); Total Bilirubin 1.1 mg/dl (0.2-1.3); Total Protein 6.5 g/dl (6.3-8.2)
[2025-03-14 15:32] LABS: Urine Albumin 3+ (Neg - Trace); Urine Bilirubin Negative (Negative); Urine Character Clear (Clear); Urine Color Yellow; Urine Glucose Negative (Negative); Urine Ketone Negative (Negative); Urine Leukocyte Negative (Negative); Urine Nitrite Negative (Negative); Urine Occult Blood Negative (Negative); Urine Urobilinogen Negative (Neg - 1+)
[2025-03-14 15:41] LABS: Urine Bacteria Few (Negative); Urine Mucus Few; Urine Red Blood Cell 0-2 /HPF (0-2); Urine White Cell 0-2 /HPF (0-5)
[2025-03-14 16:08] LABS: ALT (SGPT) 25 U/L (0-50)
== END ==
LOC: OLABP 14:49
PROVIDERS: ATTENDING PHYSICIAN Family Medicine
DX: F03.90 Unspecified dementia, unspecified severity, without behavioral disturbance, psychotic disturbance, mood disturbance, and anxiety (principal); I13.10 Hypertensive heart and chronic kidney disease without heart failure, with stage 1 through stage 4 chronic kidney disease, or unspecified chronic kidney disease; I25.10 Atherosclerotic heart disease of native coronary artery without angina pectoris; E03.9 Hypothyroidism, unspecified; N40.0 Benign prostatic hyperplasia without lower urinary tract symptoms
CPT/HCPCS: 36415; 80053; 81003; 81015; 85025; 87086

== ENCOUNTER → 2025-03-19 12:17 | Outpatient (REF) | payer MEDICARE, OTHER, SELFPAY ==
[2025-03-19 13:20] LABS: Blood Urea Nitrogen 33 mg/dl (9-20); Calcium 8.6 mg/dl (8.4-10.2); Carbon Dioxide 28 mmol/L (22-30); Chloride 105 mmol/L (98-107); Glucose 99 mg/dl (70-99); Potassium 3.7 mmol/L (3.5-5.1); Sodium 140 mmol/L (135-145); eGFR 40.93
[2025-03-19 13:24] LABS: Hematocrit 35.6 % (39.0-52.0); Hemoglobin 12.1 g/dL (13.0-18.0); Mean Corpuscular Hgb 32.2 pg (27.0-31.0); Mean Corpuscular Volume 94.7 fL (80.0-94.0); Mean Platelet Volume 10.9 fL (7.4-10.4); Platelet Count 208 10^3/uL (130-400); Red Blood Cell Count 3.76 10^6/uL (4.70-6.10); Red Cell Dist. Width 12.8 % (11.5-14.5); White Blood Cell Count 5.8 10^3/uL (4.8-10.8)
[2025-03-19 13:28] LABS: NT-proBNP 270 pg/ml
[2025-03-19 14:15] LABS: % Basophils 0.5 % (0-2); % Eosinophils 3.1 % (0-6); % Immature Granulocytes 1.4 % (0-0.5); % Lymphocytes 30.3 % (20.5-51.1); % Monocytes 10.3 % (1.7-9.3); % Neutrophils 54.4 % (42.2-75.2); Absolute Eosinophils 0.2 10^3/uL (0-0.7); Absolute Immature Granulocytes 0.1 10^3/uL (0-0.05); Absolute Lymphocytes 1.8 10^3/uL (1.2-3.4); Absolute Monocytes 0.6 10^3/uL (0.1-0.6); Absolute Neutrophils 3.2 10^3/uL (1.4-6.5); Nucleated Red Blood Cells % 0 % (-)
== END ==
LOC: OLABP 12:17
PROVIDERS: ATTENDING PHYSICIAN Family Medicine
DX: F03.90 Unspecified dementia, unspecified severity, without behavioral disturbance, psychotic disturbance, mood disturbance, and anxiety (principal); I13.10 Hypertensive heart and chronic kidney disease without heart failure, with stage 1 through stage 4 chronic kidney disease, or unspecified chronic kidney disease; I25.10 Atherosclerotic heart disease of native coronary artery without angina pectoris
CPT/HCPCS: 36415; 80048; 83880; 85025

== ENCOUNTER → 2025-03-21 11:27 | Outpatient (REF) | payer MEDICARE, OTHER, SELFPAY ==
[2025-03-21 12:42] LABS: % Basophils 0.9 % (0-2); % Eosinophils 2.2 % (0-6); % Immature Granulocytes 1.6 % (0-0.5); % Lymphocytes 30.1 % (20.5-51.1); % Monocytes 10.5 % (1.7-9.3); % Neutrophils 54.7 % (42.2-75.2); Absolute Basophils 0.1 10^3/uL (0-0.2); Absolute Eosinophils 0.2 10^3/uL (0-0.7); Absolute Immature Granulocytes 0.1 10^3/uL (0-0.05); Absolute Monocytes 0.7 10^3/uL (0.1-0.6); Absolute Neutrophils 3.7 10^3/uL (1.4-6.5); Hematocrit 35.2 % (39.0-52.0); Hemoglobin 11.9 g/dL (13.0-18.0); Mean Corp Hgb Conc. 33.8 g/dL (33.0-37.0); Mean Corpuscular Hgb 32.3 pg (27.0-31.0); Mean Corpuscular Volume 95.7 fL (80.0-94.0); Mean Platelet Volume 11.2 fL (7.4-10.4); Nucleated Red Blood Cells % 0 % (-); Platelet Count 217 10^3/uL (130-400); Red Blood Cell Count 3.68 10^6/uL (4.70-6.10); White Blood Cell Count 6.8 10^3/uL (4.8-10.8)
[2025-03-21 13:07] LABS: Blood Urea Nitrogen 30 mg/dl (9-20); Carbon Dioxide 30 mmol/L (22-30); Chloride 107 mmol/L (98-107); Glucose 112 mg/dl (70-99); Sodium 140 mmol/L (135-145); eGFR 38.06
== END ==
LOC: OLABP 11:27
PROVIDERS: ATTENDING PHYSICIAN Family Medicine
DX: F03.90 Unspecified dementia, unspecified severity, without behavioral disturbance, psychotic disturbance, mood disturbance, and anxiety (principal); I13.10 Hypertensive heart and chronic kidney disease without heart failure, with stage 1 through stage 4 chronic kidney disease, or unspecified chronic kidney disease; I25.10 Atherosclerotic heart disease of native coronary artery without angina pectoris
CPT/HCPCS: 36415; 80048; 85025